=== PATIENT | female | born 1985 ===

== ENCOUNTER 2020-12-22 19:56 | Emergency (ER) | payer OTHER ==
[~2020-12-22] VITALS: Ht 154.9 cm; Wt 83.5 kg
[2020-12-22] MEDS ORDERED: LOVENOX40 MG/0.4 SUBCUTANEO (20:11)
[2020-12-22] MEDS ORDERED: PERCOCET 5-3251 EACH PO (20:12)
== END 2020-12-23 10:11 | disposition home or self-care (01) ==
LOC: ER 19:56
DX: O34.11 Maternal care for benign tumor of corpus uteri, first trimester (principal); O99.611 Diseases of the digestive system complicating pregnancy, first trimester; K80.20 Calculus of gallbladder without cholecystitis without obstruction; Z34.81 Encounter for supervision of other normal pregnancy, first trimester
CPT/HCPCS: 74182

== ENCOUNTER 2021-01-26 10:17 | Outpatient (CLI) | payer OTHER ==
[~2021-01-26 10:17] MED LIST: LOVENOX40 MG/0.4 SUBCUTANEO; PERCOCET 5-3251 EACH PO
== END 2021-01-26 11:40 | disposition home or self-care (01) ==
LOC: NST 10:17
PROVIDERS: ATTEND Obstetrics & Gynecology
DX: Z34.82 Encounter for supervision of other normal pregnancy, second trimester (principal)

== ENCOUNTER 2021-01-29 11:19 | Outpatient (CLI) | payer OTHER | END 2021-01-29 12:24 | disposition home or self-care (01) | LOC: NST 11:19 | PROVIDERS: ATTEND Obstetrics & Gynecology | DX: Z34.82 Encounter for supervision of other normal pregnancy, second trimester (principal) ==

== ENCOUNTER 2021-04-23 09:59 | Outpatient (CLI) | payer OTHER | END 2021-04-23 10:57 | disposition home or self-care (01) | LOC: NST 09:59 | PROVIDERS: ATTEND Obstetrics & Gynecology | DX: O34.211 Maternal care for low transverse scar from previous cesarean delivery (principal); Z3A.35 35 weeks gestation of pregnancy ==

== ENCOUNTER 2021-04-30 09:53 | Outpatient (CLI) | payer OTHER | END 2021-04-30 11:13 | disposition home or self-care (01) | LOC: NST 09:53 | PROVIDERS: ATTEND Obstetrics & Gynecology | DX: Z34.83 Encounter for supervision of other normal pregnancy, third trimester (principal) ==

== ENCOUNTER 2021-05-07 14:30 | Inpatient (IN) | payer OTHER ==
[~2021-05-07] VITALS: Ht 154.9 cm; Wt 5.0 kg
[2021-05-11] MEDS ORDERED: PRENATAL TABLE1 EAC1 PO (16:35)
== END 2021-05-14 11:59 | disposition home or self-care (01) | DRG 786 ==
LOC: LDR 05-11 11:48 → SURG-SUITE 05-11 11:48 → SURH 05-25 14:30
PROVIDERS: ADMIT Obstetrics & Gynecology Maternal & Fetal Medicine; ATTEND Obstetrics & Gynecology Maternal & Fetal Medicine
PROC: 3E033VJ Introduction of Other Hormone into Peripheral Vein, Percutaneous Approach (ICD-10-PCS; 2021-05-11)
PROC: 4A1HXFZ Monitoring of Products of Conception, Cardiac Rhythm, External Approach (ICD-10-PCS; 2021-05-11)
PROC: 10D00Z1 Extraction of Products of Conception, Low, Open Approach (ICD-10-PCS; principal; 2021-05-11 14:00)
DX: O76 Abnormality in fetal heart rate and rhythm complicating labor and delivery (principal); O22.33 Deep phlebothrombosis in pregnancy, third trimester; I82.502 Chronic embolism and thrombosis of unspecified deep veins of left lower extremity; Z79.01 Long term (current) use of anticoagulants; Z3A.37 37 weeks gestation of pregnancy; Z37.0 Single live birth